=== PATIENT | female | born 1950 | race Caucasian/White ===

== ENCOUNTER 2019-08-06 09:27 | Inpatient (IN) | payer MEDICARE, MEDICAID ==
[~2019-08-06] VITALS: Ht 162.6 cm; Wt 81.6 kg
[2019-08-06] MEDS ORDERED: ACET1TAB23 PO (14:30)
[2019-08-06] MEDS ORDERED: PANT40TA4 PO (14:30)
[2019-08-06] MEDS ORDERED: SENN-18 PO (14:30)
[2019-08-06] MEDS ORDERED: ACET-2154 PO (14:30)
[2019-08-06] MEDS ORDERED: CYCL5TAB PO (14:30)
[2019-08-06] MEDS ORDERED: ATEN50TA PO (14:30)
[2019-08-06] MEDS ORDERED: BISA10SU61 RC (14:30)
[2019-08-06] MEDS ORDERED: ENOX40DI SQ (14:30)
[2019-08-06] MEDS ORDERED: HYDR-4354 PO (14:30)
[2019-08-06] MEDS ORDERED: AMLO5TAB9 PO (14:30)
[2019-08-06] MEDS ORDERED: DOCU100C36 PO (14:30)
[2019-08-06 14:53] VITALS: BP 112/56
[2019-08-06] MEDS ORDERED: SENNOSIDES 1 TABLET PO PRN (15:30)
--- NOTE | 2019-08-06 15:30 | NUR ---
Patient admitted around 215pm in [facility] via ambulance with 2 EMT in stable condition. Midback surgical dressing and slight sacrum redness noted. On soft diet as evaluated by speech in [place] as per endorse by RN. On pain management for S/P surgery and prior to therapy. VIP MD Wilkins aware and MD Bernard notified. Med recon Addendum: 08/06/19 at 1542 by JOSE ABEL RN RN Med recon done. MD Wilkins notified. ordered continue medicines. Fax to pharmacy. not in distress. nose swab done for MRSA-sent to lab. will continue monitor
[2019-08-06] MEDS: ACETAMINOPHEN 325 MG TABLET PO PRN (15:57)
[2019-08-06] MEDS ORDERED: DOCUSATE SODIUM 100 MG CAPSULE PO SCH (17:00)
[2019-08-06] MEDS: HYDROCODONE/APAP 10-325 MG TABLET PO PRN ×2 (17:24→21:30)
[2019-08-06] MEDS ORDERED: DOCUSATE SODIUM 100 MG CAPSULE PO PRN (17:45)
[2019-08-06] MEDS: SENNOSIDES 1 TABLET PO SCH (18:16)
--- NOTE | 2019-08-06 19:00 | NUR ---
PATIENT ALERT ORIENTED, NO SOB NO CHEST PAIN, CONT ON PAIN MANAGEMENT OF LOWER BACK, KEPT CLEAN DRY AND COMFORTABLE. CONT TO MONITOR.
--- NOTE | 2019-08-06 19:00 | NUR ---
Patient noted left side distended. no complaint of pain/discomfort.
[2019-08-06 20:37] VITALS: BP 102/62
[2019-08-07] MEDS: HYDROCODONE/APAP 10-325 MG TABLET PO PRN ×4 (02:23→21:15)
[2019-08-07 05:56] VITALS: BP 123/64
[2019-08-07] MEDS: ACETAMINOPHEN 325 MG TABLET PO PRN ×2 (06:01→20:56)
[2019-08-07] MEDS: PANTOPRAZOLE SODIUM 40 MG TABLET.DR PO SCH (06:02)
--- NOTE | 2019-08-07 06:07 | NUR ---
PATIENT HAS ELEVATED TEMP 100 ORALLY, GIVEN COOLING MEASURES, AND TYLENOL 650MG WILL CONT TO MONITOR.
--- NOTE | 2019-08-07 07:13 | NUR ---
alert oriented, given pain meds, current temp 98.8 orally, endorsed to next shift.
[2019-08-07 07:54] VITALS: BP 143/67
[2019-08-07] MEDS: SENNOSIDES 1 TABLET PO SCH ×2 (09:00→17:14)
[2019-08-07] MEDS: ATENOLOL 50 MG TABLET PO SCH (09:00)
[2019-08-07] MEDS: ACETAMINOPHEN/CODEINE 300-30 MG TABLET PO SCH (09:00)
[2019-08-07 11:14] VITALS: BP 149/61
--- NOTE | 2019-08-07 13:45 | NUR ---
Received Patient in room, Pt. A&Ox4 able to express needs. IN NO acute distress. Vital signs taken and stable for patient. No complains of pain. Patient noted with nausea with No vomiting noted. Patient also refused breakfast and du meds stating it gets worse when she takes medications. Paged x2. Vital signs rechecked and stable for patient. MD visited pt. with an order for Zofran 8mg ODT PRN administered and effective. Patient was able to eat sandwich. Monitored closely, safety measures in place and will continue with care.
[2019-08-07] MEDS: AMLODIPINE 5 MG TABLET PO SCH (15:13)
[2019-08-07] MEDS: ENOXAPARIN SODIUM 40 MG/0.4 ML DISP.SYRIN SQ SCH (15:14)
[2019-08-07 15:30] VITALS: BP 142/66
--- NOTE | 2019-08-07 18:31 | NUR ---
Patient noted with a fever of 101.3, all other VS stable. Administered Tylenol 650mg crushed right away. Cooling measures applied. Surgical site noted with small drainage and redness. Paged Dr. Wilkins and with an order for IV Vanco, Chest X-ray, UA, Blood culture x2. IV line started on left arm. [place] 10/325 1 tab PO PRN Q 4hrs administered for pain and effective. Needs met and will continue with care.
--- NOTE | 2019-08-07 18:50 | NUR ---
Temperate rechecked and 98.7. Patient stated feeling much better. Surgical incision site dressing changed as ordered intact and dry. Safety measures in place, Endorsed to next shift and will continue with care.
--- NOTE | 2019-08-07 19:30 | NUR ---
Patient alert and oriented x 4. IV in left forearm 22 G. C/O pain in back. Will administer pain medication. Urine specimen collected per MD order. Blood culture pending. Will administer Tylenol for low grade fever. Spinal dressing intact. Patient refuse suppository for this evening, requesting medication for tomorrow. Call light and frequently used items within reach. Will continue to monitor.
[2019-08-07] MEDS ORDERED: VANCOMYCIN IV 750 MG in IV DEXTROSE 5% 250 ML IV SCH (20:00)
[2019-08-07 20:05] VITALS: BP 108/62
[2019-08-07] MEDS ORDERED: VANCOMYCIN IV 1,250 MG in IV DEXTROSE 5% 250 ML IV ONE (20:30)
[2019-08-07 21:33] LABS: *BILIRUBIN,URIN NEGATIVE (NEGATIVE); *CLARITY,URINE CLOUDY (CLEAR); *COLOR,URINE YELLOW (YELLOW); *KETONES,URINE 1+ (NEGATIVE); *UROBILINOGEN,URINE 0.2 E.U./dl (NORMAL); LEUKOCYTE ESTERASE ,URINE 2+ (NEGATIVE); NITRITE, URINE NEGATIVE (NEGATIVE); UGLUCOSE NEGATIVE (NEGATIVE)
[2019-08-07 21:41] LABS: *BLOOD, URINE TRACE (NEGATIVE)
[2019-08-07 21:43] LABS: BACTERIA,URINE MODERATE /HPF (NONE SEEN); SQUAMOUS EPITHELIAL CELL,UR MODERATE /HPF (NONE SEEN); WBC,URINE TNTC /HPF (0-3)
[2019-08-07] MEDS: ONDANSETRON ODT 4 MG TAB.RAPDIS SL PRN (22:53)
[2019-08-08] MEDS: HYDROCODONE/APAP 10-325 MG TABLET PO PRN (02:01)
[2019-08-08] MEDS: PANTOPRAZOLE SODIUM 40 MG TABLET.DR PO SCH (06:11)
[2019-08-08] MEDS: BISACODYL 10 MG SUPP.RECT RC PRN (06:11)
[2019-08-08 06:45] VITALS: BP 144/79
[2019-08-08 07:29] LABS: CREATININE 0.8 mg/dL (0.6-1.3); MAGNESIUM 1.9 mg/dL (1.8-2.4); PHOSPHOROUS 3.8 mg/dL (2.5-4.9); POTASSIUM 4.1 mmol/L (3.5-5.1)
--- NOTE | 2019-08-08 07:45 | NUR ---
Received patient on bedpan. AAOx4. In no acute distress. No SOB noted. IV on L FA intact and patent. Safety measures implemented. Call light within reach. Will endorse accordingly. Continue plan of care.
[2019-08-08 07:55] LABS: BASOPHILS % (AUTO) 0.5 % (0.0-2.0); EOSINOPHILS # (AUTO) 0.3 K/uL (0.0-0.7); HEMATOCRIT 34.2 % (31.2-41.9); LYMPHOCYTES # (AUTO) 1.1 K/uL (20.0-40.0); LYMPHOCYTES % (AUTO) 11.9 % (20.5-51.5); MEAN CORPUSCULAR HEMOGLOBIN 24.5 uug (24.7-32.8); MEAN CORPUSCULAR HGB CONC 32 g/dL (32.3-35.6); MEAN CORPUSCULAR VOLUME 76.4 fL (75.5-95.3); MONOCYTES # (AUTO) 0.7 K/uL (2.0-10.0); MONOCYTES % (AUTO) 8.1 % (0.0-11.0); NEUTROPHILS % (AUTO) 76.5 % (38.5-71.5); PLATELET COUNT (AUTO) 217 K/uL (179-408); RED BLOOD CELL COUNT(AUTO) 4.48 MIL/uL (3.63-4.92); WHITE BLOOD COUNT (AUTO) 9.1 K/uL (3.8-11.8)
[2019-08-08] MEDS: ONDANSETRON ODT 4 MG TAB.RAPDIS SL PRN ×2 (08:40→19:29)
[2019-08-08 09:00] VITALS: BP 116/50
[2019-08-08] MEDS: ATENOLOL 50 MG TABLET PO SCH (09:00)
[2019-08-08] MEDS: SENNOSIDES 1 TABLET PO SCH ×2 (09:00→16:44)
[2019-08-08] MEDS: AMLODIPINE 5 MG TABLET PO SCH (09:00)
[2019-08-08] MEDS: ACETAMINOPHEN/CODEINE 300-30 MG TABLET PO SCH (10:38)
[2019-08-08] MEDS: ENOXAPARIN SODIUM 40 MG/0.4 ML DISP.SYRIN SQ SCH (10:41)
--- NOTE | 2019-08-08 13:42 | NUR ---
CLINICAL PHARMACY NOTE: VANCOMYCIN PHARMACY TO DOSE Subjective: To start vancomycin in this 68 y/o female for indication of possible wound infection (BC pending, low grade fevers since admit, recent post-op from [facility]). Objective: weight 81kg height 162cm BUN/Scr 14/0.8 Wbc 9.1 temp 99.1 Patient received 2 doses of 1.5gm vanco pre/post op at [facility] 08/04. Received pt at our facility 08/06 evening. One of 1250mg vanco given last night 08/07 @2100 Assessment/Plan As pt did not receive a continuous regimen of vancomycin, will start anew with vancomycin 1250mg q18h for estimated trough of 15.27, 2nd dose today at 1500. Will order trough before 4th scheduled dose (not ordered yet). Will follow and adjust if condition or renal function were to change as well.
--- NOTE | 2019-08-08 13:58 | NUR ---
WOUND CARE CONSULT: PT SEEN FOR LOWER BACK SURGICAL INCISION. PT'S SURGICAL DRESSING HAD FALLEN OFF REVEALING STERI STRIPS AND CLOSED INCISION, NO DRAINAGE, NO ODOR WITH SOME REDNESS AROUND CLOSED INCISION. SPOKE WITH DR MCNALLY AND HE WILL EXAMINE PT. CLEAN DRESSING APPLIED BY RN (NONSTICK BORDERED DRESSING). PT TOLERATED WELL. PT ALSO NOTED TO HAVE SOME PERIANAL IRRITATION AND SMALL DRY SCAB TO LOWER LEFT BUTTOCK. RECOMMEND Z GUARD. DISCUSSED WITH NURSING STAFF. DEFER TO MD/SURGEON FOR LOWER BACK SURGICAL SITE. WILL SEE PRN. PT IS AMBULATORY AND CONTINENT. MD IN AGREEMENT WITH PLAN OF CARE. Addendum: 08/08/19 at 1440 by SAMI MACIEL RN NEW ORDERS RECEIVED FROM DR MCNALLY FOR SKIN IRRITATION/REDNESS AROUND CLOSED LOWER BACK INCISION. DISCUSSED WITH NURSING STAFF.
[2019-08-08 15:43] VITALS: BP 115/56
[2019-08-08] MEDS: MORPHINE SULFATE 20 MG/1 ML ORAL LIQ. PO PRN ×2 (15:50→20:06)
--- NOTE | 2019-08-08 16:18 | NUR ---
INTERDISCIPLINARY TEAM CONFERENCE
[2019-08-08] MEDS: VANCOMYCIN IV 1,250 MG in IV DEXTROSE 5% 250 ML IV SCH (16:25)
[2019-08-08] MEDS: TRIAMCINOLONE ACET 0.1% CREAM 15 GM TUBE TOP SCH (16:44)
[2019-08-08] MEDS: ACETAMINOPHEN 325 MG TABLET PO PRN (16:44)
--- NOTE | 2019-08-08 18:25 | NUR ---
Patient resting comfortably in bed at this time. Wound care done. Verbalizes pain relieved by PRN PO Roxanol. All needs met. Will endorse to plan of care to processing associate accordingly.
[2019-08-08] MEDS: Z GUARD REMEDY PASTE 57 GM TUBE TOP PRN (18:36)
--- NOTE | 2019-08-08 19:30 | NUR ---
Patient alert and oriented x 4. C/O pain in back and nausea. Will administer pain medication and Zofran. IV 22 G intact and patent in right hand running IV Vancomycin Q18H. Spinal dressing intact. Call light and frequently used items within reach. Will continue to monitor.
[2019-08-08 20:52] VITALS: BP 111/56
[2019-08-08] MEDS: MORPHINE SULFATE 2 MG/1 ML DISP.SYRIN IV PRN (23:18)
[2019-08-09] MEDS: MORPHINE SULFATE 20 MG/1 ML ORAL LIQ. PO PRN ×4 (03:11→20:57)
[2019-08-09 05:33] VITALS: BP 135/60
[2019-08-09] MEDS: PANTOPRAZOLE SODIUM 40 MG TABLET.DR PO SCH (06:16)
[2019-08-09 07:44] VITALS: BP 129/69
--- NOTE | 2019-08-09 07:59 | NUR ---
Patient noted sitting up in bed , complaints of pain, PRN morphine given, complaints of nausea, PRN zofran given, no signs of distress noted, call light in reach, bed locked and in lowest position
[2019-08-09] MEDS: ONDANSETRON ODT 4 MG TAB.RAPDIS SL PRN (08:47)
[2019-08-09] MEDS: MORPHINE SULFATE 2 MG/1 ML DISP.SYRIN IV PRN ×2 (08:50→14:22)
[2019-08-09] MEDS: VANCOMYCIN IV 1,250 MG in IV DEXTROSE 5% 250 ML IV SCH (08:53)
[2019-08-09] MEDS: ATENOLOL 50 MG TABLET PO SCH (09:00)
[2019-08-09] MEDS: SENNOSIDES 1 TABLET PO SCH ×2 (09:00→16:58)
[2019-08-09] MEDS: AMLODIPINE 5 MG TABLET PO SCH (09:00)
[2019-08-09] MEDS: ENOXAPARIN SODIUM 40 MG/0.4 ML DISP.SYRIN SQ SCH (09:04)
[2019-08-09] MEDS: TRIAMCINOLONE ACET 0.1% CREAM 15 GM TUBE TOP SCH ×2 (09:07→16:58)
--- NOTE | 2019-08-09 10:22 | NUR ---
INDIVIDUALIZE PLAN OF CARE
--- NOTE | 2019-08-09 13:36 | NUR ---
CLINICAL PHARMACY NOTE: VANCOMYCIN PHARMACY TO DOSE Subjective: To continue vancomycin in this 68 y/o female for indication of surgical site cellulitis. Objective: weight 81kg height 162cm BUN/Scr 14/0.8(08/08) Wbc 9.1(08/08) temp 98.8 Assessment/Plan Will continue with vancomycin 1250mg q18h for estimated trough of 15.27, 3rd dose today at 0900. Will order trough before 4th scheduled dose (ordered for tomorrow at 0230). Will follow and adjust if condition or renal function were to change as well.
[2019-08-09 16:01] VITALS: BP 113/56
[2019-08-09] MEDS: BISACODYL 10 MG SUPP.RECT RC PRN (16:58)
[2019-08-09] MEDS: CYCLOBENZAPRINE HCL 10 MG TABLET PO PRN (17:06)
--- NOTE | 2019-08-09 19:30 | NUR ---
Patient alert and oriented x 4. No C/O pain at this time. IV 22 G intact and patent in left hand. IV Vancomycin Q18H, due at 0300. Spinal dressing intact. Call light and frequently used items within reach. Will continue to monitor.
[2019-08-09 20:26] VITALS: BP 118/69
[2019-08-10] MEDS: VANCOMYCIN IV 1,250 MG in IV DEXTROSE 5% 250 ML IV SCH ×2 (03:09→17:04)
[2019-08-10] MEDS: MORPHINE SULFATE 20 MG/1 ML ORAL LIQ. PO PRN ×3 (03:19→21:22)
[2019-08-10 05:41] VITALS: BP 113/52
[2019-08-10] MEDS: PANTOPRAZOLE SODIUM 40 MG TABLET.DR PO SCH (06:12)
[2019-08-10] MEDS: MORPHINE SULFATE 2 MG/1 ML DISP.SYRIN IV PRN (07:57)
[2019-08-10] MEDS: CYCLOBENZAPRINE HCL 10 MG TABLET PO PRN (07:58)
[2019-08-10 08:00] VITALS: BP 136/74
[2019-08-10] MEDS: ENOXAPARIN SODIUM 40 MG/0.4 ML DISP.SYRIN SQ SCH (08:03)
[2019-08-10] MEDS: TRIAMCINOLONE ACET 0.1% CREAM 15 GM TUBE TOP SCH ×2 (08:06→17:04)
[2019-08-10] MEDS: SENNOSIDES 1 TABLET PO SCH ×2 (08:07→17:00)
[2019-08-10] MEDS: AMLODIPINE 5 MG TABLET PO SCH (08:08)
[2019-08-10] MEDS: ATENOLOL 50 MG TABLET PO SCH (08:09)
--- NOTE | 2019-08-10 09:47 | NUR ---
Patient assisted to restroom and to wheelchair at this time, refused blood pressure medications this morning, B/P noted at 136/74, PRN IV morphine given, no changes in mental status, complaints of pain at this time, no signs of distress noted, call light in reach, bed locked and in lowest position, all needs met at this time
--- NOTE | 2019-08-10 11:57 | NUR ---
CLINICAL PHARMACY NOTE: VANCOMYCIN PHARMACY TO DOSE Subjective: To continue vancomycin in this 68 y/o female for indication of surgical site cellulitis. Objective: weight 81kg height 162cm BUN/Scr 14/0.8(08/08) Wbc 9.1(08/08) temp 98.2 Vancomycin trough today at 0230:10.0 Assessment/Plan Since Vancomycin trough is under the therapeutic range, will increase dose to 1250mg q14h for estimated trough of 15.2, 2nd dose today at 1700. Will order trough before 4th scheduled dose (not ordered yet). Will follow and adjust if condition or renal function were to change as well.
[2019-08-10] MEDS: LORAZEPAM 0.5 MG TABLET PO PRN (15:42)
[2019-08-10 16:00] VITALS: BP 137/67
--- NOTE | 2019-08-10 19:30 | NUR ---
Patient alert and oriented x 4. No C/O pain at this time. IV intact and patent in left hand. IV Vancomycin Q18H, due at 0700 08/11. Patient requesting Ativan to be given at bed time to help with anxiety. Spinal dressing intact. Call light and frequently used items within reach. Will continue to monitor.
[2019-08-10 20:58] VITALS: BP 135/59
[2019-08-11] MEDS: LORAZEPAM 0.5 MG TABLET PO PRN (03:25)
[2019-08-11] MEDS: MORPHINE SULFATE 20 MG/1 ML ORAL LIQ. PO PRN ×2 (04:03→08:47)
[2019-08-11 04:31] VITALS: BP 100/64
[2019-08-11] MEDS: PANTOPRAZOLE SODIUM 40 MG TABLET.DR PO SCH (06:21)
--- NOTE | 2019-08-11 06:45 | NUR ---
UNWITNESSED FALL. PATIENT FOUND LAYING ON RIGHT SIDE OUTSIDE OF BATHROOM. ABRASION FOUND ON RIGHT ELBOW AND LEFT BUTTOCK. PHOTOS TAKEN, AND PLACED IN CHART. PATIENT TRYING TO WALK TO BATHROOM TO BRUSH TEETH. NURSE NOT IN ROOM WHEN PATIENT FELL. PATIENT GIVING HERSELF A SPONGE BATH, WHEN PATIENT DECIDED SHE WANTED TO BRUSH TEETH. ACCORDING THE PATIENT " I WANTED TO BRUSH MY TEETH, AND THOUGHT I WAS STRONG ENOUGH TO WALK THERE. THE FRONT WHEEL SLIPPED OF THE WALKED AND FELL TO MY SIDE. LUMBAR SPINAL INCISION UNCHANGED FROM FALL. VS WNL. NEURO ASSESSMENT PERFORMED. PUPILS ROUND AND REACTIVE. ALERT AND ORIENTED X 4. ASSISTED PATIENT BACK TO BED AFTER ASSESSMENT WITH HELP OF CHARGE NURSE. 10/10 PAIN STATED IN SURGICAL INCISION AREA. FLEXERIL GIVEN TO HELP WITH PAIN. SEARCH MARKETING SPECIALIST PABLO CONTACTED WITH PELVIC X-RAY AND RIGHT ELBOW X-RAY ORDERED. WILL ENDORSE TO ONCOMEING SHIFT ACCORDINGLY.
[2019-08-11] MEDS: CYCLOBENZAPRINE HCL 10 MG TABLET PO PRN ×2 (06:52→17:34)
[2019-08-11] MEDS: VANCOMYCIN IV 1,250 MG in IV DEXTROSE 5% 250 ML IV SCH ×2 (06:52→21:30)
[2019-08-11 07:39] LABS: CREATININE 0.8 mg/dL (0.6-1.3); MAGNESIUM 1.8 mg/dL (1.8-2.4); PHOSPHOROUS 4.4 mg/dL (2.5-4.9); POTASSIUM 3.3 mmol/L (3.5-5.1)
[2019-08-11 07:41] LABS: BASOPHILS % (AUTO) 0.7 % (0.0-2.0); EOSINOPHILS # (AUTO) 0.2 K/uL (0.0-0.7); EOSINOPHILS % (AUTO) 3.1 % (0.0-7.0); HEMATOCRIT 31.9 % (31.2-41.9); HEMOGLOBIN 10.2 g/dL (10.9-14.3); LYMPHOCYTES # (AUTO) 1.2 K/uL (20.0-40.0); LYMPHOCYTES % (AUTO) 17.5 % (20.5-51.5); MEAN CORPUSCULAR HEMOGLOBIN 24.2 uug (24.7-32.8); MEAN CORPUSCULAR HGB CONC 32 g/dL (32.3-35.6); MEAN CORPUSCULAR VOLUME 75.7 fL (75.5-95.3); MONOCYTES # (AUTO) 0.7 K/uL (2.0-10.0); MONOCYTES % (AUTO) 10.1 % (0.0-11.0); NEUTROPHILS # (AUTO) 4.9 K/uL (1.8-8.9); NEUTROPHILS % (AUTO) 68.6 % (38.5-71.5); PLATELET COUNT (AUTO) 257 K/uL (179-408); RED BLOOD CELL COUNT(AUTO) 4.22 MIL/uL (3.63-4.92); WHITE BLOOD COUNT (AUTO) 7.1 K/uL (3.8-11.8)
[2019-08-11] MEDS: ATENOLOL 50 MG TABLET PO SCH (08:36)
[2019-08-11] MEDS: SENNOSIDES 1 TABLET PO SCH ×2 (08:36→17:00)
[2019-08-11] MEDS: ENOXAPARIN SODIUM 40 MG/0.4 ML DISP.SYRIN SQ SCH (08:40)
[2019-08-11] MEDS: AMLODIPINE 5 MG TABLET PO SCH (08:41)
[2019-08-11] MEDS: TRIAMCINOLONE ACET 0.1% CREAM 15 GM TUBE TOP SCH ×2 (08:48→17:36)
[2019-08-11 09:02] VITALS: BP 139/49
[2019-08-11] MEDS ORDERED: OXYCODONE HCL 5 MG TABLET PO PRN (11:45)
[2019-08-11] MEDS ORDERED: POTASSIUM CHLORIDE 20 MEQ TAB.PRT.SR PO ONE (13:30)
--- NOTE | 2019-08-11 14:12 | NUR ---
CLINICAL PHARMACY NOTE: VANCOMYCIN PHARMACY TO DOSE Subjective: To continue vancomycin in this 68 y/o female for indication of surgical site cellulitis. Objective: weight 81kg height 162cm BUN/Scr 15/0.8 Wbc 7.1 temp 98.8 Vanco trough pending tonight at 2029 Assessment/Plan Will continue vanco regimen of 1250mg q14h for estimated trough of 15.2, 3rd dose today at 0700. Will order trough before 4th scheduled dose (due tonight at 2029). RN endorsed to hold dose if trough >20. Will follow in am and adjust as needed. Will continue to monitor
[2019-08-11 16:00] VITALS: BP 129/68
[2019-08-11] MEDS: BISACODYL 10 MG SUPP.RECT RC PRN (17:34)
--- NOTE | 2019-08-11 18:54 | NUR ---
Pt received this morning sitting up in bed. Pt AAOx3-4. Pt able to make needs known. IV infiltrated, twice. New 20 michael IV in left hand inserted, flushed, and patent. Antibiotic therapy completed. Pt reports pain 10/10, PRN medication administered as ordered. No other acute distress or SOB noted. VS stable. Pt compliant with routine medications and cooperative with therapies as offered. New order received for change in pain medication, OxyIR 20mg Q8hr PRN ordered, and administered per PRN order. Pt reports effective relief. C/O constipation, PRN suppository administered as ordered. All comfort and safety needs met. Bed in locked and lowest position, with side rails up x2, and bed alarm on, new air mattress applied. Wound and skin care provided as ordered. Call light and personal items placed within reach. Will continue to monitor and endorse to oncoming law instructor.
[2019-08-11 20:10] VITALS: BP 141/68
[2019-08-11] MEDS: OXYCODONE HCL 5 MG TABLET PO PRN (23:14)
--- NOTE | 2019-08-11 23:15 | NUR ---
PATIENT AWAKE IN BED. C/O PAIN IN LOWER BACK. PATIENT GIVEN OXY IR 20MG PO PRN FOR PAIN. CALL LIGHT IN REACH. ALL NEEDS ATTENDED. WILL CONTINUE TO MONITOR AND ASSESS.
[2019-08-12 05:41] VITALS: BP 122/53
--- NOTE | 2019-08-12 05:56 | NUR ---
PATIENT AWAKE IN BED. SLEPT WELL. DENIES PAIN AT THIS TIME. CALL LIGHT IN REACH. H/L INTACT AND PATENT, NOTED TO LEFT AC #20 GAUGE. CALL LIGHT IN REACH. WILL CONTINUE TO MONITOR AND ASSESS,
[2019-08-12] MEDS: PANTOPRAZOLE SODIUM 40 MG TABLET.DR PO SCH (06:15)
[2019-08-12] MEDS: OXYCODONE HCL 5 MG TABLET PO PRN ×3 (06:58→23:05)
[2019-08-12 07:53] VITALS: BP 132/64
[2019-08-12] MEDS: AMLODIPINE 5 MG TABLET PO SCH (09:00)
[2019-08-12] MEDS: ATENOLOL 50 MG TABLET PO SCH (09:00)
[2019-08-12] MEDS: SENNOSIDES 1 TABLET PO SCH ×2 (09:00→16:26)
[2019-08-12] MEDS: ONDANSETRON ODT 4 MG TAB.RAPDIS SL PRN ×2 (09:35→23:09)
[2019-08-12] MEDS: TRIAMCINOLONE ACET 0.1% CREAM 15 GM TUBE TOP SCH ×2 (09:36→16:27)
[2019-08-12] MEDS: ENOXAPARIN SODIUM 40 MG/0.4 ML DISP.SYRIN SQ SCH (09:40)
[2019-08-12] MEDS: VANCOMYCIN IV 1,250 MG in IV DEXTROSE 5% 250 ML IV SCH (11:00)
--- NOTE | 2019-08-12 12:05 | NUR ---
CLINICAL PHARMACY NOTE: VANCOMYCIN PHARMACY TO DOSE Subjective: To continue vancomycin in this 68 y/o female for indication of surgical site cellulitis. Objective: weight 81kg height 162cm BUN/Scr 15/0.8 (08/11) Wbc 7.1 (08/11) temp 98.8 Vanco trough level on 08/11 at 2030: 15.3 Assessment/Plan Since vanco trough level is within therapeutic range, will continue same dose of vanco 1250mg IV q14h for today. Next dose tomorrow at 0100. Will continue to monitor
[2019-08-12 15:57] VITALS: BP 138/66
--- NOTE | 2019-08-12 19:04 | NUR ---
Pt received this morning, assessed. No acute distress, or SOB noted. Pt c/o nausea and emesis x2, Zofran administered per PRN orders. Pt reports effective, requesting to refrain from pain medication until later. Pt able to make needs known. Pt assisted to restroom for BMx1 and voiding. Pt compliant with routine medications and therapy as offered, refusing BP medications and PO stool softeners. VSS. IV infiltrated. New 20 gauge IV inserted to left AC. Pt showered, skin and wound care provided. Personal items and call light placed within reach, repositioned for comfort. Will continue to monitor and endorse to oncoming casino shift manager.
[2019-08-12 19:47] VITALS: BP 117/50
[2019-08-13] MEDS: VANCOMYCIN IV 1,250 MG in IV DEXTROSE 5% 250 ML IV SCH (00:05)
[2019-08-13 04:55] VITALS: BP 125/50
[2019-08-13] MEDS: PANTOPRAZOLE SODIUM 40 MG TABLET.DR PO SCH (06:53)
--- NOTE | 2019-08-13 07:45 | NUR ---
SLEEPING IN BED, NO DISTRESS NOTED
[2019-08-13] MEDS: SENNOSIDES 1 TABLET PO SCH ×2 (08:53→17:00)
[2019-08-13] MEDS: ONDANSETRON ODT 4 MG TAB.RAPDIS SL PRN ×2 (08:54→17:06)
[2019-08-13] MEDS: AMLODIPINE 5 MG TABLET PO SCH (09:08)
[2019-08-13] MEDS: ATENOLOL 50 MG TABLET PO SCH (09:09)
[2019-08-13] MEDS: ENOXAPARIN SODIUM 40 MG/0.4 ML DISP.SYRIN SQ SCH (09:20)
[2019-08-13] MEDS: TRIAMCINOLONE ACET 0.1% CREAM 15 GM TUBE TOP SCH ×2 (09:22→17:05)
--- NOTE | 2019-08-13 09:41 | NUR ---
CLINICAL PHARMACY NOTE: VANCOMYCIN PHARMACY TO DOSE Subjective: To continue vancomycin in this 68 y/o female for indication of surgical site cellulitis. Objective: weight 81kg height 162cm BUN/Scr 15/0.8 (08/11) Wbc 7.1 (08/11) temp 98.8 Vanco trough level on 08/11 at 2030: 15.3 Assessment/Plan Since vanco trough level on 08/11 was within therapeutic range, will continue same dose of vanco 1250mg IV q14h for today. Next dose today at 1500. Will continue to monitor
[2019-08-13] MEDS: OXYCODONE HCL 5 MG TABLET PO PRN ×2 (09:52→17:50)
[2019-08-13] MEDS: SULFAMETH/TRIMETH 800/160 MG TABLET PO SCH ×3 (11:15→21:00)
--- NOTE | 2019-08-13 13:30 | NUR ---
PATIENT VERBALIZED SOME DIFFICULTY SWALLOWING MEDICATION, SMALL MEDICATION PILLS ADMINISTERED WITH APPLE SAUCE, TOLERATED WELL, ST MADE AWARE TO RE-EVAL PATIENT, PATIENT REFUSED TO TAKE BACTRIM DS BECAUSE IT IS LARGE PILL, OFFERED PATIENT TO CRUSH AND MIX IN APPLE SAUCE, STILL REFUSED AND PATIENT STATED THAT SHE DOES NOT WANT TO TAKE IT BECAUSE SHE DOES NOT HAVE ANY SIGNS AND SYMPTOMS OF UTI ANYMORE. DENIED DYSURIA, FREQUENCY.
[2019-08-13 15:53] VITALS: BP 116/69
[2019-08-13 16:02] VITALS: BP 116/69
[2019-08-13] MEDS: BISACODYL 10 MG SUPP.RECT RC PRN (17:05)
[2019-08-13] MEDS: Z GUARD REMEDY PASTE 57 GM TUBE TOP PRN (17:07)
--- NOTE | 2019-08-13 17:39 | NUR ---
PATIENT IS ALERT, ORIENTED X4, NO SOB, RESP EVEN NONLABORED,SKIN WARM AND DRY TO TOUCH, PAIN IS MANAGED WITH PAIN MEDICATIONS AND WITH NONPHARMACOLOGICAL INTERVENTION, DISTRACTION, 1;1 COMMUNICATION ETC, INCISION SITE IS CLEAN AND DRY, PATIENT REFUSED BACTRIM, AND REFUSED SOME MEDS, STATED SHE HAS DIFFICULTY SWALLOWING, HOWEVER NO SIGNS AND SYMPTOMS OF ASPIRATION NOTED DURING MEALS. SOME MEDS SUCH OXY IR IS ADMINISTERED WITH APPLE SAUCE, TOLERATED WELL, NO SIGNS OR SYMPTOMS OF ASPIRATION NOTED, CONTINUE TO MONITOR. NO DISTRESS NOTED
[2019-08-13 19:45] VITALS: BP 105/52
[2019-08-14 04:37] VITALS: BP 140/69
[2019-08-14] MEDS: PANTOPRAZOLE SODIUM 40 MG TABLET.DR PO SCH (06:48)
[2019-08-14] MEDS: LORAZEPAM 0.5 MG TABLET PO PRN (06:59)
[2019-08-14 07:49] VITALS: BP 124/64
[2019-08-14] MEDS: OXYCODONE HCL 5 MG TABLET PO PRN ×2 (08:36→18:37)
[2019-08-14] MEDS: SULFAMETH/TRIMETH 800/160 MG TABLET PO SCH ×2 (08:36→20:04)
[2019-08-14] MEDS: ATENOLOL 50 MG TABLET PO SCH (08:45)
[2019-08-14] MEDS: ENOXAPARIN SODIUM 40 MG/0.4 ML DISP.SYRIN SQ SCH (08:45)
[2019-08-14] MEDS: TRIAMCINOLONE ACET 0.1% CREAM 15 GM TUBE TOP SCH ×2 (08:48→17:28)
[2019-08-14] MEDS: AMLODIPINE 5 MG TABLET PO SCH (08:48)
[2019-08-14] MEDS: CYCLOBENZAPRINE HCL 10 MG TABLET PO PRN (09:12)
[2019-08-14] MEDS: SENNOSIDES 1 TABLET PO SCH ×2 (09:13→17:26)
[2019-08-14] MEDS ORDERED: BARIUM SULFATE 340 GM ONE (13:23)
--- NOTE | 2019-08-14 13:29 | NUR ---
SBAR report received this morning from [facility] nurse. Pt received resting in bed on air mattress. Pt assessed, AAOx4, c/o of severe pain 10/10 reported with intense muscle cramps following administration of Ativan requested for anxiety, given early this morning with cnc machinist 2nd shift. Pt able to make needs known. Pt compliant with medications, taking most PO pills cut up in apple sauce, refusing BP medications, VSS, and cooperative with therapies as offered. PRN OxyIR 20mgs administered for 10/10 pain and Flexeril for muscle spasms. Both reported effective. Pt seen by MD, no new orders received. All safety and comfort needs met. Bed in locked and lowest position with side rails up x2, bed alarm on, personal items and call light placed within reach. Will continue to monitor.
--- NOTE | 2019-08-14 14:29 | NUR ---
Pt sent to and returned from XR Esophagram study for difficulty swallowing via wheelchair. Returned to finish PT in the gym. Will follow up as needed.
[2019-08-14 16:00] VITALS: BP 109/55
[2019-08-14 19:47] VITALS: BP 139/55
[2019-08-15 05:32] VITALS: BP 148/61
[2019-08-15] MEDS: PANTOPRAZOLE SODIUM 40 MG TABLET.DR PO SCH (06:03)
[2019-08-15] MEDS: BISACODYL 10 MG SUPP.RECT RC PRN (06:05)
--- NOTE | 2019-08-15 06:37 | NUR ---
Pt reports feelings of constipation. Pt refuses all PO medications, Colace and Senna included. PRN suppository administered along with prune juice administered. Pt teaching provided. Will continue to monitor and endorse to oncoming day shift.
[2019-08-15 07:52] VITALS: BP 152/69
[2019-08-15] MEDS: SULFAMETH/TRIMETH 800/160 MG TABLET PO SCH ×2 (08:24→21:08)
[2019-08-15] MEDS: SENNOSIDES 1 TABLET PO SCH ×2 (08:24→16:34)
[2019-08-15] MEDS: AMLODIPINE 5 MG TABLET PO SCH (08:25)
[2019-08-15] MEDS: ATENOLOL 50 MG TABLET PO SCH (08:25)
[2019-08-15] MEDS: TRIAMCINOLONE ACET 0.1% CREAM 15 GM TUBE TOP SCH ×2 (08:26→16:35)
[2019-08-15] MEDS: ENOXAPARIN SODIUM 40 MG/0.4 ML DISP.SYRIN SQ SCH (08:27)
[2019-08-15] MEDS: OXYCODONE HCL 5 MG TABLET PO PRN (12:47)
--- NOTE | 2019-08-15 14:47 | NUR ---
INTERDISCIPLINARY TEAM CONFERENCE
[2019-08-15 16:40] VITALS: BP 119/71
[2019-08-15 21:41] VITALS: BP 101/54
[2019-08-16] MEDS: OXYCODONE HCL 5 MG TABLET PO PRN ×3 (00:15→22:24)
--- NOTE | 2019-08-16 04:53 | NUR ---
aaox4 no acute distress noted. needs attended. VSS. OOB to the BR with walker with supervision. Voiding freely. On pain management. Medicated with Oxy 20mg given for pain for back pain. Tolerated well. No ill effects noted. Will monitor patient. Back incision healing clean dry and intact. No acute distress noted. Took meds with apple sauce. Fall precautions maintained.
[2019-08-16] MEDS: PANTOPRAZOLE SODIUM 40 MG TABLET.DR PO SCH (06:23)
[2019-08-16 07:52] VITALS: BP 109/63
[2019-08-16] MEDS: SULFAMETH/TRIMETH 800/160 MG TABLET PO SCH ×2 (09:53→20:21)
[2019-08-16] MEDS: AMLODIPINE 5 MG TABLET PO SCH (09:53)
[2019-08-16] MEDS: ATENOLOL 50 MG TABLET PO SCH (09:53)
[2019-08-16] MEDS: SENNOSIDES 1 TABLET PO SCH ×2 (09:57→16:00)
[2019-08-16] MEDS: TRIAMCINOLONE ACET 0.1% CREAM 15 GM TUBE TOP SCH ×2 (09:58→16:00)
[2019-08-16] MEDS: ENOXAPARIN SODIUM 40 MG/0.4 ML DISP.SYRIN SQ SCH (09:58)
[2019-08-16] MEDS: ONDANSETRON ODT 4 MG TAB.RAPDIS SL PRN (11:10)
[2019-08-16 15:41] VITALS: BP 116/50
[2019-08-16] MEDS: BISACODYL 10 MG SUPP.RECT RC PRN (15:53)
--- NOTE | 2019-08-16 18:03 | NUR ---
Patient had request this shift to have pain medication, oxycontin. She says she is trying to not take it. She refuses to have air mattress on her bed. She says it makes her back pain worse. She sits up in her wheelchair and will utilize her back brace as well. The patient took one suppository for constipation. She has even, unlabored breathing. She appears in no apparent distress on her smart phone. Plan: endorse to night team registered nurse. Jose Malik RN
[2019-08-16 20:39] VITALS: BP 120/59
[2019-08-17] MEDS: PANTOPRAZOLE SODIUM 40 MG TABLET.DR PO SCH (06:27)
--- NOTE | 2019-08-17 06:39 | NUR ---
Received patient in bed. AAO x4. Not in acute distress or SOB. Able to make needs known. On room air. Complained of pain on her lower back, rated pain 9/10 in numeric scale. Oxycodone 20 mg given and effective. Pain assessed and reassessed after pain medication. All due medication given and well tolerated. Physical assessment done. All needs attended promptly. Fall prevention observed. Safety measures maintained. Bed in low and lock position, alarm on, side rails up x2 for safety. Call light and frequently used items within reach. Continue to monitor and will endorse to the oncoming nurse accordingly.
[2019-08-17 07:01] VITALS: BP 135/55
[2019-08-17 08:00] VITALS: BP 136/80
[2019-08-17] MEDS: ATENOLOL 50 MG TABLET PO SCH (08:56)
[2019-08-17] MEDS: SULFAMETH/TRIMETH 800/160 MG TABLET PO SCH (08:56)
[2019-08-17] MEDS: SENNOSIDES 1 TABLET PO SCH ×2 (08:57→17:00)
[2019-08-17] MEDS: AMLODIPINE 5 MG TABLET PO SCH (08:57)
[2019-08-17] MEDS: ENOXAPARIN SODIUM 40 MG/0.4 ML DISP.SYRIN SQ SCH (08:59)
[2019-08-17] MEDS: TRIAMCINOLONE ACET 0.1% CREAM 15 GM TUBE TOP SCH ×2 (09:00→17:00)
[2019-08-17] MEDS: OXYCODONE HCL 5 MG TABLET PO PRN ×2 (11:19→22:53)
[2019-08-17 16:44] VITALS: BP 106/65
--- NOTE | 2019-08-17 18:29 | NUR ---
NO CHANGES NOTED DURING SHIFT, NO DISTRESS NOTED, MINIMUM ASSIST WITH ADLS, TOLERATED MEALS AND MEDS WELL, NEEDS ATTENDED TIMELY, ALERT, ORIENTED X4, NO SOB, RESP EVEN NONLABORED,SKIN WARM AND DRY TO TOUCH. INCISION SITE CLEAN AND DRY.
--- NOTE | 2019-08-17 19:40 | NUR ---
Awake, in bed during initial rounds, watching TV. Denies any pain/discomforts at this time. safety measures nad fall precaution maintained. Continue care as planned.
[2019-08-17 21:03] VITALS: BP 123/42
--- NOTE | 2019-08-17 22:55 | NUR ---
Presented complaint of lumbar pain, OxyIR given as ordered and needed. Will monitor.
--- NOTE | 2019-08-18 00:15 | NUR ---
Request assistance to get up to the wheelchair, moderate assist provided. Instructed patient to call for assistance when transferring/getting up.Patient verbalized understanding.
[2019-08-18 04:35] VITALS: BP 100/48
[2019-08-18] MEDS: PANTOPRAZOLE SODIUM 40 MG TABLET.DR PO SCH (06:27)
--- NOTE | 2019-08-18 06:50 | NUR ---
Shift End Report: VS stable. Slept good. Medicated once for pain. No further complaint presented. All needs attended and met. No significant event reported. Continue current rehab of care.
[2019-08-18 07:55] VITALS: BP 139/91
[2019-08-18] MEDS: TRIAMCINOLONE ACET 0.1% CREAM 15 GM TUBE TOP SCH ×2 (08:51→17:00)
[2019-08-18] MEDS: ATENOLOL 50 MG TABLET PO SCH (08:54)
[2019-08-18] MEDS: SENNOSIDES 1 TABLET PO SCH ×2 (08:54→17:00)
[2019-08-18] MEDS: AMLODIPINE 5 MG TABLET PO SCH (08:54)
[2019-08-18] MEDS: ENOXAPARIN SODIUM 40 MG/0.4 ML DISP.SYRIN SQ SCH (08:57)
--- NOTE | 2019-08-18 10:42 | NUR ---
Patient noted sitting up in wheelchair, no facial cues of pain at this time, no signs of distress noted, call light in reach, bed locked and in lowest position, all needs met at this time.
[2019-08-18] MEDS: OXYCODONE HCL 5 MG TABLET PO PRN ×2 (11:46→21:08)
[2019-08-18] MEDS: BISACODYL 10 MG SUPP.RECT RC PRN (17:25)
--- NOTE | 2019-08-18 19:00 | NUR ---
PRN suppository given to patient, patient request to self administer suppository, Okayed request
--- NOTE | 2019-08-18 19:40 | NUR ---
Up in the wheelchair, wheeling self in the hallways. Denies any pain/discomforts at this time. Continue care as planned.
[2019-08-18 21:07] VITALS: BP 113/48
--- NOTE | 2019-08-18 21:10 | NUR ---
Complaining of lower back pain, OxyIr given as ordered and needed. Will monitor.
[2019-08-19 05:32] VITALS: BP 144/71
--- NOTE | 2019-08-19 05:36 | NUR ---
Shift End Report: Vs stable. Medicated once for pain. No further complaint presented. Able to transfer self independently to the wheelchair and vice versa. No fall/injury reported. Safety measure and fall precaution maintained. No significant event reported. Continue current rehab plan of care.
[2019-08-19] MEDS: PANTOPRAZOLE SODIUM 40 MG TABLET.DR PO SCH (06:34)
[2019-08-19 07:01] LABS: BASOPHILS # (AUTO) 0.1 K/uL (0.0-8.0); BASOPHILS % (AUTO) 0.9 % (0.0-2.0); EOSINOPHILS # (AUTO) 0.2 K/uL (0.0-0.7); HEMATOCRIT 32.6 % (31.2-41.9); HEMOGLOBIN 10.7 g/dL (10.9-14.3); LYMPHOCYTES # (AUTO) 1.3 K/uL (20.0-40.0); LYMPHOCYTES % (AUTO) 20.2 % (20.5-51.5); MEAN CORPUSCULAR HEMOGLOBIN 24.2 uug (24.7-32.8); MEAN CORPUSCULAR HGB CONC 33 g/dL (32.3-35.6); MEAN CORPUSCULAR VOLUME 73.5 fL (75.5-95.3); MONOCYTES # (AUTO) 0.6 K/uL (2.0-10.0); NEUTROPHILS # (AUTO) 4.2 K/uL (1.8-8.9); NEUTROPHILS % (AUTO) 66.9 % (38.5-71.5); PLATELET COUNT (AUTO) 442 K/uL (179-408); RED BLOOD CELL COUNT(AUTO) 4.43 MIL/uL (3.63-4.92); WHITE BLOOD COUNT (AUTO) 6.3 K/uL (3.8-11.8)
[2019-08-19 07:14] LABS: CREATININE 0.9 mg/dL (0.6-1.3); MAGNESIUM 1.8 mg/dL (1.8-2.4); PHOSPHOROUS 4.1 mg/dL (2.5-4.9); POTASSIUM 3.6 mmol/L (3.5-5.1)
[2019-08-19 07:38] VITALS: BP 130/67
[2019-08-19 07:45] LABS: IRON, SERUM 36 ug/dL (50-175)
[2019-08-19] MEDS: SENNOSIDES 1 TABLET PO SCH ×3 (09:00→17:00)
[2019-08-19] MEDS: ENOXAPARIN SODIUM 40 MG/0.4 ML DISP.SYRIN SQ SCH (09:10)
[2019-08-19] MEDS: AMLODIPINE 5 MG TABLET PO SCH (09:13)
[2019-08-19] MEDS: ATENOLOL 50 MG TABLET PO SCH (09:14)
--- NOTE | 2019-08-19 09:15 | NUR ---
Patient awake, alert, oriented x 3, not in any distress. She denies pain or discomfort at this time. Due medications administered and tolerated. Patient refused to take senokot. Risks and benefits explained but patient still refused. Patient showered and ready for follow up appointment with Dr. min today. Needs attended to promptly. Call light and frequently used items placed within reach.
[2019-08-19] MEDS: TRIAMCINOLONE ACET 0.1% CREAM 15 GM TUBE TOP SCH ×2 (09:25→17:31)
--- NOTE | 2019-08-19 10:40 | NUR ---
Patient picked up by [employer] transportation, transferred via gurney. Patient has no complain of any pain or discomfort at this time.
--- NOTE | 2019-08-19 12:10 | NUR ---
Patient back from Appointment with Dr. Lopez with no new order. Patient remains stable, denies any pain or discomfort.
[2019-08-19] MEDS: OXYCODONE HCL 5 MG TABLET PO PRN ×2 (15:25→21:21)
[2019-08-19 16:25] VITALS: BP 138/84
--- NOTE | 2019-08-19 19:40 | NUR ---
Sleeping comfortably during initial rounds. No s/s of pain/discomforts. Safety measure and fall precaution maintained. Continue care as planned.
[2019-08-19 20:41] VITALS: BP 118/48
--- NOTE | 2019-08-19 21:21 | NUR ---
Complaining of midback pain. medicated as needed and ordered . Will monitor.
[2019-08-20] MEDS: OXYCODONE HCL 5 MG TABLET PO PRN ×2 (03:26→20:32)
[2019-08-20 04:55] VITALS: BP 114/53
[2019-08-20] MEDS: PANTOPRAZOLE SODIUM 40 MG TABLET.DR PO SCH (06:22)
--- NOTE | 2019-08-20 06:44 | NUR ---
Shift End Report; VS stable. Medicated twice for complaint of pain with relief. No further complaint presented. Slept good. No significant event reported, Continue current rehab care of care.
[2019-08-20 07:50] VITALS: BP 91/61
[2019-08-20] MEDS: ATENOLOL 50 MG TABLET PO SCH (09:00)
[2019-08-20] MEDS: AMLODIPINE 5 MG TABLET PO SCH (09:00)
[2019-08-20] MEDS: TRIAMCINOLONE ACET 0.1% CREAM 15 GM TUBE TOP SCH ×2 (09:00→17:09)
[2019-08-20] MEDS: SENNOSIDES 1 TABLET PO SCH ×2 (09:00→17:09)
[2019-08-20] MEDS: ENOXAPARIN SODIUM 40 MG/0.4 ML DISP.SYRIN SQ SCH (09:00)
[2019-08-20] MEDS: ONDANSETRON ODT 4 MG TAB.RAPDIS SL PRN (13:49)
--- NOTE | 2019-08-20 14:55 | NUR ---
oxy ir given 5mg only unable to scan due to request 5mg only by pt. does not want the full 10mg
[2019-08-20 20:04] VITALS: BP 115/55
[2019-08-21] MEDS: OXYCODONE HCL 5 MG TABLET PO PRN (02:38)
--- NOTE | 2019-08-21 04:34 | NUR ---
aaox4 OOB to wheelchair upon initial rounds. Compliant with meds and care. Complaint of low back pain Oxycontin 5mg given, patient on Oxycontin 10 mg q4hrs as needed, but patient only took Oxycontin 5mg only, she says its too strong for her. Noted in the Pyxis that Oxycontin 5mg wasted and documented. Patient for discharge today. VSS. Will monitor patient.
[2019-08-21 05:53] VITALS: BP 122/69
[2019-08-21] MEDS: PANTOPRAZOLE SODIUM 40 MG TABLET.DR PO SCH (06:19)
[2019-08-21 08:14] VITALS: BP 155/85
[2019-08-21] MEDS ORDERED: OXYCODONE HCL 5 MG TABLET PO PRN (09:00)
[2019-08-21] MEDS: AMLODIPINE 5 MG TABLET PO SCH (09:17)
[2019-08-21] MEDS: ONDANSETRON ODT 4 MG TAB.RAPDIS SL PRN (09:17)
[2019-08-21 09:18] VITALS: BP 155/85
[2019-08-21] MEDS: SENNOSIDES 1 TABLET PO SCH (09:18)
[2019-08-21] MEDS: ATENOLOL 50 MG TABLET PO SCH (09:18)
[2019-08-21] MEDS: TRIAMCINOLONE ACET 0.1% CREAM 15 GM TUBE TOP SCH (09:28)
[2019-08-21] MEDS: ENOXAPARIN SODIUM 40 MG/0.4 ML DISP.SYRIN SQ SCH (09:28)
[2019-08-21] MEDS: BISACODYL 10 MG SUPP.RECT RC PRN (11:18)
--- NOTE | 2019-08-21 12:20 | NUR ---
Patient discharge to home around 12pm in stable condition via private transport. Medication instruction given. belongings and valuables given. took picture of wounds. MD Bernard and MD Coronado ([facility]) aware. medication list including pain medicine given. not in distress. Thankful of service given.
== END 2019-08-21 12:00 | disposition home health service (06) | DRG 560 ==
PROVIDERS: ADMIT Physical Medicine & Rehabilitation Pain Medicine; ATTEND Physical Medicine & Rehabilitation Pain Medicine
DX: Z47.89 Encounter for other orthopedic aftercare (principal); T81.41XA Infection following a procedure, superficial incisional surgical site, initial encounter; L03.312 Cellulitis of back [any part except buttock and flank]; N39.0 Urinary tract infection, site not specified; E66.9 Obesity, unspecified; Z68.30 Body mass index [BMI] 30.0-30.9, adult; Y92.239 Unspecified place in hospital as the place of occurrence of the external cause; R53.1 Weakness; F41.9 Anxiety disorder, unspecified; M48.061 Spinal stenosis, lumbar region without neurogenic claudication; M51.16 Intervertebral disc disorders with radiculopathy, lumbar region; T78.49XA Other allergy, initial encounter; X58.XXXA Exposure to other specified factors, initial encounter; R11.0 Nausea; I10 Essential (primary) hypertension; R13.10 Dysphagia, unspecified; Z82.49 Family history of ischemic heart disease and other diseases of the circulatory system; Z88.1 Allergy status to other antibiotic agents; Z88.8 Allergy status to other drugs, medicaments and biological substances
CPT/HCPCS: 36415; 71046; 72170; 73080; 74018; 74220; 83550; 83735; 84100; 85025; 87040; 87077; 87086; A4663; J1650; J2270; J3370; J7050; J7060; Q0162; Q9967